=== PATIENT | female | born 1950 | race Caucasian/White ===

== ENCOUNTER 2016-10-31 13:26 | Emergency (ER) | payer MEDICARE, BC ==
[~2016-10-31] VITALS: Ht 165.1 cm; Wt 72.7 kg
[~2016-10-31 13:26] MED LIST: ALBU18HF IH; ALPR0.25 PO; AZIT250T6 PO; CITA20TA9 PO; ESTR0.62 PO; ESTR1TAB3 PO; FLUT1DIS IH; HYDR-971 PO; MELO15TA6 PO; PRED50TA PO
[2016-10-31 13:38] VITALS: BP 130/103
--- NOTE | 2016-10-31 14:05 | RAD ---
Bilateral ankles, 10/31/2016: History: Fall, pain No acute fracture or dislocation is identified cortical irregularity along the dorsal aspect of the anterior portion of the talus is probably due to old trauma. IMPRESSION: No acute bony abnormality is detected. Left foot, 3 views, 10/31/2016: No fracture or dislocation is identified.
--- NOTE | 2016-11-01 13:40 | ED.ADGEN ---
Past History Past Medical History: High Cholesterol, Hypertension, [place] Past Surgical History: Other Alcohol Use: None Drug Use: None Adult General Chief Complaint Chief Complaint Lower extremity injuries HPI HPI Patient is a 1-year-old female presents with bilateral ankle and left foot pain after tripping while walking down steps outdoors. Patient has abrasions contusions to both ankles, right greater than left and left foot pain. Patient has been able to weight bear with some pain. Denies hitting her head neck pain. Patient is not on anticoagulation therapy. No other symptoms or complaints. Review of Systems Review of Systems Review symptoms as per history of present illness. All other review symptoms are negative. Allergies Allergies Allergies Coded Allergies Type Severity Reaction Last Updated Verified Sulfa (Sulfonamide Antibiotics) Allergy Severe Hives 04/03/14 Yes Physical Exam Physical Exam Constitutional: Well developed, well nourished, no acute distress, non-toxic appearance. HENT: Normocephalic, atraumatic, bilateral external ears normal, oropharynx moist, no oral exudates, nose normal. Eyes: PERRLA, EOMI, conjunctiva normal, no discharge. Neck: Normal range of motion, no tenderness] Cardiovascular:Heart rate regular rhythm, no murmur. Lungs & Thorax: Bilateral breath sounds clear to auscultation . Extremities: Right ankle, tenderness swelling medial malleolus, no deformity or abrasions. Left ankle, no deformities, left midfoot contusion without deformity. Tenderness present. Neurologic: Alert and oriented X 3, normal motor function, normal sensory function, no focal deficits noted. Psychologic: Affect normal, judgement normal, mood normal. Current Patient Data Vital Signs Vital Signs Date Time Temp Pulse Resp B/P (MAP) Pulse Ox O2 Delivery O2 Flow Rate FiO2 10/31/16 13:38 98.1 82 20 95 Room Air EKG EKG [] Radiology/Procedures Radiology/Procedures Bilateral ankle, left foot: No fractures [] Course & Med Decision Making Course & Med Decision Making Pertinent Labs and Imaging studies reviewed. (See chart for details) [No evidence of fractures. Patient placed in a ankle sprain and ortho shoe. Patient is directed to use walker follow-up with PCP] Final Impression Final Impression [#1 bilateral ankle sprain # 2 left foot pain Problems: Dragon Disclaimer Dragon Disclaimer This electronic medical record was generated, in whole or in part, using a voice recognition dictation system. EVARISTO STROUD DO November 01, 2016 13:40
== END 2016-10-31 14:35 | disposition home or self-care (01) ==
LOC: ER 13:26
DX: S93.402A Sprain of unspecified ligament of left ankle, initial encounter (principal); S93.401A Sprain of unspecified ligament of right ankle, initial encounter; M79.672 Pain in left foot; E78.00 Pure hypercholesterolemia, unspecified; I10 Essential (primary) hypertension; I25.2 Old myocardial infarction; Z88.2 Allergy status to sulfonamides; W01.0XXA Fall on same level from slipping, tripping and stumbling without subsequent striking against object, initial encounter; Y93.01 Activity, walking, marching and hiking; Y99.8 Other external cause status; Y92.89 Other specified places as the place of occurrence of the external cause
CPT/HCPCS: 29515; 73610; 73630; 99284-25

== ENCOUNTER → 2016-12-11 | Outpatient (CLI) | payer MEDICARE, BC ==
--- NOTE | 2016-12-11 13:31 | RAD ---
DATE: December 11, 2016 EXAM: MAMMO CRISTOBAL SCREENING BILATERAL HISTORY: Screening study. COMPARISON: March 23, 2014. This study was interpreted with the benefit of Computerized Aided Detection (CAD). 2-D digital mammographic views of both breasts were performed in the CC and MLO projections. 3-D digital tomosynthesis of both breasts were performed in the CC and MLO projections and reviewed on a computer workstation. FINDINGS: The breast parenchyma heterogeneiously dense, which could reduce sensitivity of mammography. Again seen is a nodule within the medial aspect of the right breast at the 3:00 position which is stable. Again seen is a nodule within the inferior aspect of the left breast which is stable. There are no new dominant suspicious masses, suspicious microcalcifications or evidence of architectural distortion. IMPRESSION: No mammographic indicators for malignancy. BI-RADS CATEGORY: 2 BENIGN FINDING RECOMMENDED FOLLOW-UP: 12M 12 MONTH FOLLOW-UP PQRS compliance statement: Patient information was entered into a reminder system with a target due date December 12, 2017 for the next mammogram. Mammography is a sensitive method for finding small breast cancers, but it does not detect them all and is not a substitute for careful clinical examination. A negative mammogram does not negate a clinically suspicious finding and should not result in delay in biopsying a clinically suspicious abnormality. "Our facility is accredited by the [employer] Mammography Program." The patient's breast density may affect the ability of mammography to detect breast cancer. There are 4 categories of breast density, A, B, C and D. Breast density A means that most of the breast tissue is replaced with adipose tissue and therefore is not dense. Breast density B means that the breast tissue is mildly dense and scattered. Breast density C means that the breast tissue is heterogeneously dense. Breast density D means that the breast tissue is very dense. Breast densities especially C and D may decrease the sensitivity of mammography to detect breast cancer. Therefore, the patient may benefit from 3-D breast mammography (3D breast tomography) as a part of their screening mammogram. Insurance may or may not pay for this additional imaging. The patient's breast density based on today's mammogram is category C.
== END | disposition home or self-care (01) ==
LOC: MAMMO 10:43
PROVIDERS: ATTEND Specialist
DX: Z12.31 Encounter for screening mammogram for malignant neoplasm of breast (principal)
CPT/HCPCS: 77063; G0202; 77067

== ENCOUNTER → 2018-01-14 | Outpatient (CLI) | payer MEDICARE, BC ==
--- NOTE | 2018-01-14 16:39 | RAD ---
DATE: 01/14/2018 EXAM: MAMMO CRISTOBAL SCREENING BILATERAL HISTORY: Routine screening COMPARISON: 12/11/2016 This study was interpreted with the benefit of Computerized Aided Detection (CAD). The breast parenchyma is heterogeneously dense, which could reduce sensitivity of mammography. Breast parenchyma level C. FINDINGS: 2-D and 3-D tomosynthesis imaging was performed in CC and MLO projections. The fibroglandular tissues are heterogeneous and somewhat nodular in character. A smooth rounded nodule in the medial aspect of the right breast has decreased in size since the previous study indicating a benign etiology. A nodule in the inferior aspect of left breast is stable. No spiculated mass or architectural distortion is seen. Benign type calcification is present. No suspicious microcalcifications have developed. IMPRESSION: There is no mammographic evidence of malignancy in either breast. BI-RADS CATEGORY: 2 BENIGN FINDING(S) RECOMMENDED FOLLOW-UP: 12M 12 MONTH FOLLOW-UP PQRS compliance statement: Patient information was entered into a reminder system with a target due date for the next mammogram. Mammography is a sensitive method for finding small breast cancers, but it does not detect them all and is not a substitute for careful clinical examination. A negative mammogram does not negate a clinically suspicious finding and should not result in delay in biopsying a clinically suspicious abnormality. "Our facility is accredited by the [employer] Mammography Program."
== END | disposition home or self-care (01) ==
LOC: MAMMO 14:09
PROVIDERS: ATTEND Specialist
DX: Z12.31 Encounter for screening mammogram for malignant neoplasm of breast (principal); I10 Essential (primary) hypertension; E78.00 Pure hypercholesterolemia, unspecified; J44.9 Chronic obstructive pulmonary disease, unspecified; Z87.891 Personal history of nicotine dependence
CPT/HCPCS: 77063; 77067

== ENCOUNTER → 2019-01-20 | Outpatient (CLI) | payer MEDICARE, BC ==
[~2019-01-20] MED LIST changes: -ALBU18HF IH; +ALBU2.5V8 IH; +HYDR-3165 PO; -HYDR-971 PO
--- NOTE | 2019-01-20 12:34 | RAD ---
EXAM: Dual energy x-ray absorptiometry (DEXA). HISTORY: Postmenopausal presents for osteoporosis screening. COMPARISON: 06/03/2007. TECHNIQUE: Dual energy x-ray absorptiometry of the lumbar spine and right hip was performed. Calculation of bone mineral density based on standard deviations above or below the expected young adult normal value (T-score) was completed. FINDINGS: The average bone mineral density in the 1st through 4th lumbar vertebrae is 0.982 g/cmxcm, corresponding with a T-score of -1.6. There is been a 4.6% increase in density of the lumbar spine compared to the baseline study. The average total bone mineral density in the right hip is 0.700 g/cmxcm, corresponding with a T-score of -2.1. There has been a 0.1% decrease in density of the right hip compared to the baseline exam. IMPRESSION: Osteopenia measured at the lumbar spine and right hip. Note: Definitions established by the World Health Organization: 1. Normal: T-score is -1.0 or above. 2. Osteopenia: T-score is between -1.0 and -2.5 . 3. Osteoporosis: T-score is -2.5 or below. Electronically signed by: María Briggs MD (01/20/2019 12:31 PM) [facility]
--- NOTE | 2019-01-21 11:15 | RAD ---
DATE: 01/20/2019 EXAM: MAMMO CRISTOBAL SCREENING BILATERAL HISTORY: Routine screening COMPARISON: 12/11/2016 and 01/14/2018 mammographic exams This study was interpreted with the benefit of Computerized Aided Detection (CAD). Breast Density: HETERO The breast parenchyma is heterogenously dense, which could reduce sensitivity of mammography. Breast parenchyma level C. FINDINGS: Small masses are stable. No suspicious calcifications. No suspicious new dominant mass or distortion. IMPRESSION: Stable. BI-RADS CATEGORY: 2 BENIGN FINDING(S) RECOMMENDED FOLLOW-UP: 12M 12 MONTH FOLLOW-UP PQRS compliance statement: Patient information was entered into a reminder system with a target due date in one year for the next mammogram. Mammography is a sensitive method for finding small breast cancers, but it does not detect them all and is not a substitute for careful clinical examination. A negative mammogram does not negate a clinically suspicious finding and should not result in delay in biopsying a clinically suspicious abnormality. "Our facility is accredited by the [employer] Mammography Program."
== END | disposition home or self-care (01) ==
LOC: DXRAD 09:26
PROVIDERS: ATTEND Specialist
DX: Z12.31 Encounter for screening mammogram for malignant neoplasm of breast (principal); Z13.820 Encounter for screening for osteoporosis; M85.88 Other specified disorders of bone density and structure, other site; N63.20 Unspecified lump in the left breast, unspecified quadrant; N63.10 Unspecified lump in the right breast, unspecified quadrant; N95.9 Unspecified menopausal and perimenopausal disorder
CPT/HCPCS: 77063; 77067; 77080

== ENCOUNTER 2019-12-20 09:20 | Emergency (ER) | payer MEDICARE, BC ==
[~2019-12-20] VITALS: Ht 165.1 cm; Wt 72.9 kg
[2019-12-20] MEDS ORDERED: IV NORMAL SALINE 1,000ML 1,000 ML IV SCH (09:50)
--- NOTE | 2019-12-20 09:55 | PHYS DOC ---
Past History Past Medical History: Constipation, High Cholesterol, Hypertension, [place], Migraines Past Surgical History: No Surgical History Alcohol Use: None Drug Use: None General Adult EDM: Chief Complaint: HEADACHE HPI: HPI: Patient is a 69-year-old female who presents to the emergency department for evaluation. She states that for the past week she has been constipated, and finally took some laxatives and an enema and had a good bowel movement yesterday, but developed a gradual onset of a severe global headache. She states she has not had similar headaches to this in the past. She states the headache did not begin abruptly, and was not "thunderclap" in onset. She has not had any vision changes, numbness, weakness, speech difficulty or confusion. She denies any head injury or trauma. She states she does not typically get headaches like this, although her history does list a past history of migraines, she states that her migraine headaches, which occur occasionally do not feel similar to this current headache. There are no alleviating or exacerbating factors to the patient's symptoms. She did take some Tylenol at home prior to arrival this morning without significant improvement. Review of Systems: Review of Systems: Constitutional: Denies fever or chills Eyes: Denies change in visual acuity HENT: Denies nasal congestion or sore throat Respiratory: Denies cough or shortness of breath Cardiovascular: Denies chest pain or edema GI: Denies abdominal pain, nausea, vomiting, bloody stools or diarrhea : Denies dysuria Musculoskeletal: Denies back pain or joint pain Integument: Denies rash Neurologic: Denies focal weakness or sensory changes Endocrine: Denies polyuria or polydipsia Lymphatic: Denies swollen glands Psychiatric: Denies depression or anxiety Heart Score: Risk Factors: Risk Factors: DM, Current or recent (<one month) smoker, HTN, HLP, family history of CAD, obesity. Risk Scores: Score 0 - 3: 2.5% MACE over next 6 weeks - Discharge Home Score 4 - 6: 20.3% MACE over next 6 weeks - Admit for Clinical Observation Score 7 - 10: 72.7% MACE over next 6 weeks - Early Invasive Strategies Allergies: Allergies: Allergies Coded Allergies Type Severity Reaction Last Updated Verified Sulfa (Sulfonamide Antibiotics) Allergy Severe Hives 04/03/14 Yes Physical Exam: PE: PHYSICAL EXAM: CONSTITUTIONAL: Well developed, well nourished HEAD: normocephalic, atraumatic. The temporal arteries are palpable bilaterally and nontender. EENT: PERRL, EOMI. Conjunctivae normal color, sclerae non-icteric; moist mucous membranes. NECK: Supple, non-tender; no meningismus. LUNGS: Lungs CTA, breathing even and unlabored. Normal air movement. HEART: Regular rate and rhythm, no murmur CHEST: No deformity; non-tender ABDOMEN: The abdomen is soft, and non-tender, no masses or bruits. EXTREM: Normal ROM; no deformity, no calf tenderness. Normal pulses palpable in all extremities. There is no pedal edema. SKIN: No rash; no diaphoresis NEURO: Alert; normal speech and cognition; CN's grossly intact; strength grossly intact without focal deficit. Isjlhy-zkav-yqsscv and heel alba testing is normal. Visual chatman are intact by confrontation. Sensation is grossly intact. NIH stroke scale score is 0. BACK: No CVA TTP. PSYCHIATRIC: Patient appears moderately anxious. Current Patient Data: Labs: Laboratory Tests Test 12/20/19 10:00 White Blood Count 7.2 x10^3/uL Red Blood Count 4.34 x10^6/uL Hemoglobin 13.7 g/dL Hematocrit 39.8 % Mean Corpuscular Volume 92 fL Mean Corpuscular Hemoglobin 32 pg Mean Corpuscular Hemoglobin Concent 35 g/dL Red Cell Distribution Width 12.8 % Platelet Count 260 x10^3/uL Neutrophils (%) (Auto) 63 % Lymphocytes (%) (Auto) 27 % Monocytes (%) (Auto) 8 % Eosinophils (%) (Auto) 2 % Basophils (%) (Auto) 1 % Neutrophils # (Auto) 4.5 x10^3uL Lymphocytes # (Auto) 1.9 x10^3/uL Monocytes # (Auto) 0.6 x10^3/uL Eosinophils # (Auto) 0.1 x10^3/uL Basophils # (Auto) 0.0 x10^3/uL Sodium Level 135 mmol/L Potassium Level 3.5 mmol/L Chloride Level 101 mmol/L Carbon Dioxide Level 24 mmol/L Anion Gap 10 Blood Urea Nitrogen 15 mg/dL Creatinine 0.9 mg/dL Estimated GFR (Cockcroft-Gault) 61.7 BUN/Creatinine Ratio 17 Glucose Level 118 mg/dL Calcium Level 8.4 mg/dL Total Bilirubin 0.4 mg/dL Aspartate Amino Transf (AST/SGOT) 17 U/L Alanine Aminotransferase (ALT/SGPT) 28 U/L Alkaline Phosphatase 69 U/L C-Reactive Protein < 0.5 mg/L Total Protein 6.6 g/dL Albumin 3.4 g/dL Albumin/Globulin Ratio 1.1 Current Medications Medications (Trade) Dose Ordered Sig/Aramis Route PRN Reason Start Time Stop Time Status Last Admin Dose Admin Morphine Sulfate (Morphine 4mg Syringe) 4 mg PRN Q15MIN PRN IV/SQ PAIN GREATER THAN 3/10 12/20/19 10:00 12/21/19 09:59 12/20/19 10:29 Sodium Chloride 1,000 ml @ 1,000 mls/hr Q1H IV 12/20/19 09:50 12/20/19 10:49 12/20/19 10:29 Lorazepam (Ativan) 0.5 mg 1X ONCE PO 12/20/19 10:15 12/20/19 10:16 DC 12/20/19 10:30 Vital Signs: Vital Signs Date Time Temp Pulse Resp B/P (MAP) Pulse Ox O2 Delivery O2 Flow Rate FiO2 12/20/19 09:20 97.9 82 18 144/95 (111) 98 Room Air EKG: EKG: Normal sinus rhythm at a rate of 64 bpm, with occasional PVCs, left axis deviation, left anterior fascicular block. There are no acute ischemic ST/T changes. [] Radiology/Procedures: Radiology/Procedures: PROCEDURE: CT HEAD WO CONTRAST CT Head W/O Contrast: History: Reason: SAINZ / Spl. Instructions: / History: Comparison: none Axial images were obtained without contrast. The yoo and white matter appears normal and symmetrical for the patients age. There is no mass effect, extraaxial fluid collections or hydrocephalus. There is no gross bleed. There is no focal loss of yoo-white matter distinction to suggest acute ischemia, i.e. stroke. Impression: No acute findings.[] Course & Med Decision Making: Course & Med Decision Making Pertinent Labs and Imaging studies reviewed. (See chart for details) [] 11:35 AM: The patient is feeling significantly better. Her headache has completely resolved. Her mental status is at baseline, verified by her who is at bedside. I discussed test results in detail, the need for close outpatient follow-up and return precautions in detail. Jose F Disclaimer: Dragon Disclaimer: This electronic medical record was generated, in whole or in part, using a voice recognition dictation system. Departure Departure: Impression: Primary Impression: Headache Disposition: 01 HOME/RESIDENCE PRIOR TO ADM Condition: STABLE Referrals: CHEIKH CAST MD (PCP) Patient Instructions: General Headache Without Cause Justification of Admission: Justification of Admission: Justification of Admission Dx: N/A SAMANTA GALEANO MD Dec 20, 2019 09:55
[2019-12-20] MEDS ORDERED: MORPHINE SULFATE 4 MG/ML DISP.SYRIN. IV/SQ PRN (10:00)
[2019-12-20] MEDS ORDERED: LORazepam 1 MG TABLET PO ONE (10:15)
[2019-12-20 10:21] LABS: BASO % 1 % (0-3); EOS # 0.1 x10^3/uL (0.0-0.7); EOS % 2 % (0-3); HEMATOCRIT 39.8 % (36.0-47.0); HEMOGLOBIN 13.7 g/dL (12.0-15.5); LYMPH # 1.9 x10^3/uL (1.0-4.8); LYMPH % 27 % (24-48); MEAN CORPUSCULAR HEMOGLOBIN 32 pg (25-35); MEAN CORPUSCULAR HGB CONC 35 g/dL (31-37); MEAN CORPUSCULAR VOLUME 92 fL (79-100); MONO # 0.6 x10^3/uL (0.0-1.1); MONO % 8 % (0-9); NEUT # 4.5 x10^3uL (1.8-7.7); NEUT % 63 % (31-73); PLATELET COUNT 260 x10^3/uL (140-400); RED BLOOD COUNT 4.34 x10^6/uL (3.50-5.40); RED CELL DISTRIBUTION WIDTH 12.8 % (11.5-14.5); WHITE BLOOD COUNT 7.2 x10^3/uL (4.0-11.0)
--- NOTE | 2019-12-20 10:24 | RAD ---
CT Head W/O Contrast: History: Reason: SAINZ / Spl. Instructions: / History: Comparison: none Axial images were obtained without contrast. The yoo and white matter appears normal and symmetrical for the patients age. There is no mass effect, extraaxial fluid collections or hydrocephalus. There is no gross bleed. There is no focal loss of yoo-white matter distinction to suggest acute ischemia, i.e. stroke. Impression: No acute findings. RS Compliance Statement: One or more of the following individualized dose reduction techniques were utilized for this examination: 1. Automated exposure control 2. Adjustment of the mA and/or kV according to patient size 3. Use of iterative reconstruction technique Electronically signed by: Jc Montiel III, MD (12/20/2019 10:21 AM) [id number]
[2019-12-20 10:27] LABS: ANION GAP 10 (6-14); BLOOD UREA NITROGEN 15 mg/dL (7-20); BUN/CREATININE RATIO 17 (6-20); CALCIUM 8.4 mg/dL (8.5-10.1); CARBON DIOXIDE 24 mmol/L (21-32); CHLORIDE 101 mmol/L (98-107); CREATININE 0.9 mg/dL (0.6-1.0); GFR 61.7; GLUCOSE 118 mg/dL (70-99); POTASSIUM 3.5 mmol/L (3.5-5.1); SODIUM 135 mmol/L (136-145)
--- NOTE | 2019-12-20 10:29 | EKG ---
[address] [address] Test Date: 2019-12-20 Test Time: 10:02:43 Pat Name: JAGDISH CONSTANTINO Department: Room: Gender: F Plumber Supervisor: : [id number] Requested By: SAMANTA GALEANO Order Number: [id number] Reading MD: Measurements Intervals [place] Rate: 64 P: OR: QRS: -51 QRSD: 98 T: 45 QT: 392 QTc: 408 Interpretive Statements IRREGULAR RHYTHM, NO P-WAVE FOUND VENTRICULAR PREMATURE COMPLEX(ES) ABNORMAL LEFT AXIS DEVIATION LEFT ANTERIOR FASCICULAR BLOCK QRS(T) CONTOUR ABNORMALITY CONSISTENT WITH ANTEROSEPTAL INFARCT AGE UNDETERMINED ABNORMAL ECG RI6.02 No previous ECG available for comparison
[2019-12-20 10:32] LABS: ALBUMIN 3.4 g/dL (3.4-5.0); ALBUMIN/GLOBULIN RATIO 1.1 (1.0-1.7); ALK PHOS 69 U/L (46-116); ALT (SGPT) 28 U/L (14-59); AST (SGOT) 17 U/L (15-37); TOTAL BILIRUBIN 0.4 mg/dL (0.2-1.0); TOTAL PROTEIN 6.6 g/dL (6.4-8.2)
[2019-12-20 10:34] LABS: C REACTIVE PROTEIN < 0.5 mg/L (0-3.3)
[2019-12-20 11:10] VITALS: BP 129/72
== END 2019-12-20 11:38 | disposition home or self-care (01) ==
LOC: ER 09:20
DX: G43.909 Migraine, unspecified, not intractable, without status migrainosus (principal); K59.00 Constipation, unspecified; E78.00 Pure hypercholesterolemia, unspecified; I25.2 Old myocardial infarction; Z88.2 Allergy status to sulfonamides
CPT/HCPCS: 36415; 70450; 80053; 85025; 86140; 93005; 96374; 99285; J2270; J7030

== ENCOUNTER → 2020-02-10 | Outpatient (CLI) | payer MEDICARE, BC ==
--- NOTE | 2020-02-11 18:02 | RAD ---
DATE: 02/10/2020 2:31 PM EXAM: MAMMO CRISTOBAL SCREENING BILATERAL HISTORY: Screening COMPARISON: 01/20/2019, 01/14/2018 Bilateral CC and MLO views of the breasts were performed. Bilateral breast tomosynthesis was performed in CC and MLO projections. This study was interpreted with the benefit of Computerized Aided Detection (CAD). FINDINGS: Breast Density: HETERO The breast parenchyma Is heterogeneously dense, which could reduce sensitivity of mammography. Breast parenchyma level C No suspicious masses, microcalcifications or architectural distortion is present to suggest malignancy in either breast. The visualized axillae are unremarkable. IMPRESSION: No mammographic evidence of malignancy. BI-RADS CATEGORY: 1 NEGATIVE RECOMMENDED FOLLOW-UP: 12M 12 MONTH FOLLOW-UP Annual screening mammography is recommended, unless clinically indicated sooner based on symptoms or change in physical exam. PQRS compliance statement: Patient information was entered into a reminder system with a target due date for the next mammogram. Mammography is a sensitive method for finding small breast cancers, but it does not detect them all and is not a substitute for careful clinical examination. A negative mammogram does not negate a clinically suspicious finding and should not result in delay in biopsying a clinically suspicious abnormality. "Our facility is accredited by the [employer] Mammography Program."
== END | disposition home or self-care (01) ==
LOC: MAMMO 14:16
PROVIDERS: ATTEND Specialist
DX: Z12.31 Encounter for screening mammogram for malignant neoplasm of breast (principal)
CPT/HCPCS: 77063; 77067

== ENCOUNTER → 2020-03-30 | Outpatient (CLI) | payer MEDICARE, BC ==
--- NOTE | 2020-03-30 10:26 | RAD ---
CT LOW DOSE LUNG SCREENING Indication: Lung cancer screening Technique: Noncontrast CT imaging was performed of the chest as per low dose screening protocol, multiplanar reconstruction images submitted. One or more of the following individualized dose reduction techniques were utilized for this examination: 1. Automated exposure control 2. Adjustment of the mA and/or kV according to patient size 3. Use of iterative reconstruction technique. Comparison: None Findings: There is a tiny 2 mm right lower lobe nodule image 130 series 2. There is approximate 9 mm transverse by 3 mm AP by 7 mm cc noncalcified nodule right lower lobe abutting the major fissure best seen image 135 series 2. There is a 5 mm inferior medial right middle lobe nodule 224 series 2. There are a couple of small 2 mm right apical nodules images 31 and 48 series 2. There is 2 mm left upper lobe nodule image 62. There is 3 mm left upper lobe nodule image 85. There is 2 mm posterior left upper lobe nodule image 83 series 2. There is 4 mm subsolid left upper lobe nodule image 175. There is 3 to 4 mm posterior left upper lobe nodule abutting the fissure image 99 series 2. There is a small 3 mm nodule along the left hemidiaphragm best seen sagittal image 33 series 4. There is likely subsolid left lower lobe nodule image 164 about 5 mm. There is biapical fibrotic change greater on the right. There is moderate centrilobular emphysema with upper zone predominance. There is degree of lower lobe bronchial wall thickening greater on the right. There is no pleural fluid or pneumothorax. There is no lobar infiltrate. There is [id number] size hiatal hernia, nonspecific wall thickening of involved segment. There is coronary calcification. Thoracic aortic caliber is within normal limits. No significantly enlarged nodes are identified of the chest. There is hepatic steatosis. There is cholelithiasis. There are some pancreatic calcifications. There is slightly exophytic lesion arising from the mid to superior right kidney laterally about 30 mm in size with density measurements not of a simple cyst at 49 Hounsfield units. There is also hyperdense lesion of the mid to superior, posterior left kidney about 12 mm, density measurements of about 80 Hounsfield units. The renal lesions are larger than 2013 CT abdomen exam. There is small bilateral renal calculi. IMPRESSION: 1. There are several pulmonary nodules as stated, largest of the right lower lobe abutting the major fissure. Lung RADS category 4, 3 month low-dose CT follow-up recommended. 2. There is moderate centrilobular emphysema. There is degree of bronchial wall thickening greatest of the right lower lobe. 3. There is coronary calcification. 4. There is hepatic steatosis. 5. There are bilateral renal lesions larger than 2013 exam, more hyperdense than simple cysts. These may be hemorrhagic or proteinaceous cysts although ultrasound evaluation or pre and postcontrast CT evaluation is recommended to exclude solid lesion. There are small bilateral renal calculi. 6. There is cholelithiasis. 7. There is hiatal hernia, nonspecific wall thickening. 8.. Calcifications may be associated with chronic or recurrent pancreatitis. Electronically signed by: Oscar Serrato MD (03/30/2020 10:23 AM) [facility]
--- NOTE | 2020-03-30 12:46 | RAD ---
EXAM: Dual energy x-ray absorptiometry (DEXA). HISTORY: Screening, osteopenia. COMPARISON: 01/20/2019. TECHNIQUE: Dual energy x-ray absorptiometry of the lumbar spine and right hip was performed. Calculation of bone mineral density based on standard deviations above or below the expected young adult normal value (T-score) was completed. FINDINGS: LUMBAR SPINE: The AVG BMD OF the L1-L4 region = 0.954 gm/cm2, T-score = -1.9, Z-score = -0.4. Findings are consistent with osteopenia. Femoral Necks: The BMD of the right femoral neck = 0.742 gm/cm2, T-score = -2.1, Z-score = -0.5. The Findings are consistent with osteopenia. Comparison to the previous DEXA study: Lumbar Spine: Compared to the previous BMD value of 0.982 today's value is not significantly changed. Right femoral neck: Compared to the previous BMD value of 0.725 today's value is not significantly changed. IMPRESSION: Osteopenia in the lumbar spine and right femoral neck Electronically signed by: Ralf Scruggs MD (03/30/2020 12:44 PM) [id number]
== END ==
LOC: DXRAD 09:28
PROVIDERS: ATTEND Specialist
DX: Z12.2 Encounter for screening for malignant neoplasm of respiratory organs (principal); M81.0 Age-related osteoporosis without current pathological fracture; J43.2 Centrilobular emphysema; J92.9 Pleural plaque without asbestos; I25.10 Atherosclerotic heart disease of native coronary artery without angina pectoris; K76.0 Fatty (change of) liver, not elsewhere classified; K80.20 Calculus of gallbladder without cholecystitis without obstruction; N20.0 Calculus of kidney; N28.1 Cyst of kidney, acquired; R91.8 Other nonspecific abnormal finding of lung field; K44.9 Diaphragmatic hernia without obstruction or gangrene; J84.10 Pulmonary fibrosis, unspecified; M85.88 Other specified disorders of bone density and structure, other site; Z87.891 Personal history of nicotine dependence
CPT/HCPCS: 77080; G0297

== ENCOUNTER → 2020-04-29 | Outpatient (CLI) | payer MEDICARE, BC ==
--- NOTE | 2020-04-29 17:16 | RAD ---
Renal ultrasound 04/29/2020 CLINICAL HISTORY: Lesions seen within the kidneys on recent lung screening CT study. TECHNIQUE: A real-time ultrasound examination of both kidneys and the urinary bladder was performed. Multiple images were obtained. FINDINGS: Comparison is made to the patient's CT scan of the chest which included the upper abdomen dated 03/30/2020. Both kidneys are within normal limits in size. The right kidney measures 10.9 cm in length. The left kidney measures 10.5 cm in length. A 2.7 cyst is seen involving the superior/midpole of the right kidney. This corresponds to the lesion seen on the patients CT scan. The 1.2 cm hyperdense lesion seen within the midpole of the left kidney is not visualized on ultrasound likely due to its posterior location. No solid mass is seen involving the left kidney. The CT appearance of this lesion is felt to be most consistent with a hyperdense cyst. The small renal calculi seen on the patient's CT scan are not visualized by ultrasound. There is no evidence of hydronephrosis. A 4 cm nodular area is seen within the splenic hilum which likely represents a splenule. Small gallstones are seen within the gallbladder. The Common bile duct measures 9 mm in diameter which is prominent for the patient's age. The urinary bladder is slightly contracted. No abnormality is seen. IMPRESSION: 2.7 cm simple cyst is seen involving the right kidney which corresponds to the abnormality seen on the patients CT scan. The 1.2 cm hyperdense lesion seen within the left kidney on the patient's recent CT scan is not visualized by ultrasound. Its CT appearance is felt to most likely represent a hyperdense cyst, however. Electronically signed by: Piter Santos MD (04/29/2020 5:13 PM) [id number]
== END ==
LOC: US 10:44
PROVIDERS: ATTEND Specialist
DX: N28.1 Cyst of kidney, acquired (principal)
CPT/HCPCS: 76770

== ENCOUNTER → 2020-06-24 | Outpatient (CLI) | payer MEDICARE, BC ==
--- NOTE | 2020-06-24 11:24 | RAD ---
EXAM: CT chest low dose lung cancer screening without contrast. HISTORY: Cigarette smoking history. TECHNIQUE: Computed tomographic images of the chest were obtained without contrast. Multiplanar refor matting was performed. *One or more of the following individualized dose reduction techniques were utilized for this examina tion: 1. Automated exposure control. 2. Adjustment of the mA and/or kV according to patient size. 3. Use of iterative reconstruction technique. COMPARISON: 03/30/2020. FINDINGS: There is a stable 8 x 3 mm nodule within the right lower lobe along the major fissure, the appearance of which favors a fissural lymph node (series 2, image 144). There is a stable 2 mm nodule within the anterior right middle lobe (series 2, image 175). There is a stable 2 mm groundglass nodu le within the anterior right middle lobe (series 2, image 147). There is a stable 2 mm nodule within the posterior right upper lobe (series 2, image 68). There is stable 2 mm nodule within the left lung apex (series 2, image 22). There is a stable 2 mm nodule within the lateral left upper lobe (series 2, image 54). There is a stable 3 mm nodule within the lateral left upper lobe (series 2, image 78). There is stable 4 mm nodule within the posterior left upper lobe along the pleural fissure likely rep resenting a fissural lymph node (series 2, image 96). There is emphysema. There is no pneumothorax or pleural effusion. There is biapical pleural parenchym al scarring. The heart is normal in size. There is calcified atherosclerotic plaque involving the cor onary arteries. No pathologically enlarged mediastinal or hilar lymph node is seen. There is a small hiatal hernia. There is a stable 1.2 cm right hepatic cyst. There is stable prominence of the pancrea tic tail likely due to adjacent splenic vessels. There are hypodense lesions within both kidneys emanuel uring 1.7 cm on the left and 2.3 cm on the right. There is degenerative change involving the spine. T here is no suspicious osseous lesion. IMPRESSION: 1. Multiple stable bilateral pulmonary nodules, the largest of which measures 8 mm within the right l hector along the major fissure and is likely a fissural lymph node. Lung RADS category 4: Follow-up in 3 months is recommended. 2. Pulmonary emphysema. 3. Hepatic cyst and suspected hepatic steatosis. 4. Renal cysts and bilateral renal hyperdense lesions likely due to hemorrhagic cyst. These are simil ar compared to the prior study. Follow-up renal sonography can be performed to confirm benignity. Electronically signed by: María Briggs MD (06/24/2020 11:21 AM) [id number]
== END ==
LOC: CT 10:29
PROVIDERS: ATTEND Specialist
DX: Z12.2 Encounter for screening for malignant neoplasm of respiratory organs (principal); R91.8 Other nonspecific abnormal finding of lung field; I25.10 Atherosclerotic heart disease of native coronary artery without angina pectoris; K44.9 Diaphragmatic hernia without obstruction or gangrene; N28.1 Cyst of kidney, acquired; J43.8 Other emphysema; K76.89 Other specified diseases of liver; Z87.891 Personal history of nicotine dependence
CPT/HCPCS: 71271

== ENCOUNTER → 2020-07-01 | Outpatient (CLI) | payer MEDICARE, BC ==
--- NOTE | 2020-07-01 23:36 | RAD ---
CLINICAL HISTORY: Bilateral renal cysts, follow-up COMPARISON: CT 03-30-20;Renal US 04-29-20 TECHNIQUE: Ultrasound examination of the bilateral kidneys and urinary bladder was performed. FINDINGS: The right kidney measures 11 cm in bipolar length. The renal cortex is normal in thickness. Renal ech ogenicity is normal. A 2.2 cm right upper pole simple appearing renal cyst is seen. There is no evide nce for hydronephrosis, shadowing renal calculus or other focal abnormality . The left kidney measures 10.7 cm in bipolar length. The renal cortex is normal in thickness. Renal ec hogenicity is normal. There is no evidence for hydronephrosis, shadowing renal calculus or focal abno rmality. No definite sonographic correlate for the high density left upper pole renal renal lesion se en on prior CT. Images of the partially filled urinary bladder are unremarkable. Echogenic appearance of the liver, likely fatty liver. IMPRESSION: 1. The high density lesion seen on prior CT within the left kidney is not definitively seen on this examination. Hemorrhagic/proteinaceous cyst or solid mass remain within the differential. As this was also not seen on prior renal ultrasound, consider MRI kidney protocol to confirm cystic nature or co ntinued follow-up on CT evaluation to establish stability. 2. Echogenic appearance of the liver, likely fatty liver. Electronically signed by: Ralf Scruggs MD (07/01/2020 11:33 PM) CJ
== END ==
LOC: US 12:25
PROVIDERS: ATTEND Specialist
DX: N28.1 Cyst of kidney, acquired (principal)
CPT/HCPCS: 76770

== ENCOUNTER → 2020-12-22 | Day surgery (SDC) | payer MEDICARE, BC ==
[~2020-12-22] MED LIST changes: +ACETAMINOPHEN 500 MG TABLET PO PRN; +ASPI-630 PO; +ATOR40TA59 PO; +BALANCED SALT IRRIG SOLN NO.2 500 ML IO ONE; +BENZONATATE 100 MG CAPSULE. PO PRN; +BRIMONIDINE 0.2% OPHTH SOLUTION 5ML BOTTLE. OS ONE; +CEFUROXIME OPHTH 4 MG/0.4 ML SYRINGE. OS ONE; +CHONDROIT-SOD-HYALURONATE KIT. OS ONE; +FLUT1BLS8 IH; +IBUPROFEN 200 MG TABLET PO PRN; +IPRATRPIUM/ALBUTEROL 0.5/2.5MG 3 ML NEBU. NEB PRN; +IV RINGERS SOLUTION,LACTATED 1,000 ML IV SCH; +LIDO/EPI IN BSS OPHTH 2.7 ML SYRINGE. OS ONE; +LIDOCAINE 2% JELLY 6ML IN APPLICATOR. ONE; +METO50TA6 PO; +MIDAZOLAM HCL PF 2 MG/2 ML VIAL. IV ONE; +MIDAZOLAM HCL PF 2 MG/2 ML VIAL. ONE; +ONDANSETRON PF 4 MG/2 ML VIAL. IV PRN; +PHENYLEPHRINE 10% OPHTH SOLUTION 5ML BOTTLE. OS PRN; +POVIDONE-IODINE 5% OPHTH SOLUTION 30ML BOTTLE. ONE; +POVIDONE-IODINE 5% OPHTH SOLUTION 30ML BOTTLE. OS ONE; +POVIDONE-IODINE 5% OPHTH SOLUTION 30ML BOTTLE. OS PRN; +PROPARACAINE 0.5% OPHTH SOLUTION 15ML BOTTLE. OS ONE; +PROPARACAINE 0.5% OPHTH SOLUTION 15ML BOTTLE. OS PRN; +prednisoLONE ACETATE 1% OPHTH SUSPENSION 5ML BOTTLE. OS ONE
[2020-12-22] MEDS: TROPICAMIDE 1% OPHTH SOLUTION 15ML BOTTLE. OS SCH ×3 (11:04→11:15)
[2020-12-22] MEDS: TOBRAMYCIN 0.3% OPHTH SOLUTION 5ML BOTTLE. OS SCH ×2 (11:05→11:10)
[2020-12-22] MEDS: KETOROLAC TROMETHAMINE 0.5% OPHTH SOLUTION BOTTLE. OS SCH ×2 (11:05→11:10)
[2020-12-22] MEDS: PHENYLEPHRINE 2.5% OPHTH SOLUTION 2ML BOTTLE. OS SCH ×3 (11:05→11:15)
--- NOTE | 2020-12-22 12:32 | PDOC4 ---
SURGEON: Guanako Diaz MD Date of Procedure: 12/22/20 PREOP Diagnosis Visually significant cataract: Left Eye OS POSTOP Diagnosis Same PROCEDURE: Phaco w/ posterior chamber IOL: Left Eye OS ANESTHESIA Deep forniceal periocular 2% Lidocaine jelly Eden/retro bulbar block with 2% Lidocaine with 0.5% Marcaine DESCRIPTION OF PROCEDURE The risks, benefits, and alternatives were discussed with the patient who elected to proceed. Informed consent was obtained in writing and placed in the chart After anesthetizing the eye topically, the patient was taken to the operating room, and the operative eye was prepped and draped in the usual sterile fashion for ocular surgery. A wire lid speculum was placed. A 1-mm clear corneal paracentesis incision was created with the side-port blade at a position three o'clock hours clockwise from the temporal cornea. Then, 1% non-preserved Lidocaine with epinephrine was injected into the anterior chamber followed by viscoelastic. Cotton-tipped applicators were used to stabilize the globe, and a 2.4 mm keratome was used to create a self-sealing incision in clear cornea at the temporal limbus. The Utrata forceps were used to create a continuous curvilinear capsulorrhexis. Balanced saline solution was injected via cannula beneath the capsulorrhexis edge to hydrodissect the lens nucleus and cortex from the lens capsule. The phacoemulsification handpiece and a chopping instrument were then used to remove the lens nucleus. The remaining epinuclear material and cortex were removed with the irrigation/aspiration handpiece. Visc oelastic was used to re-inflate the lens capsule, and the intraocular lens was injected directly into the capsular bag. The corneal wound edges were hydrated with balanced salt solution on a cannula and the irrigation/aspiration handpiece was used to extract the remaining viscoelastic. Cefuroxime 0.1mg/ml / Vigamox 0.5% was injected into the anterior chamber intracamerally. The wounds were inspected and found to be watertight at an appropriate intraocular pressure. Topical antibiotic drops were placed on the corneal surface. LRI: No If Yes, Number [] Patriot [] Length [] degrees Depth [] microns Incision Patriot: 180 Toric Lens Patriot [] Patch/shield with Maxitrol/Tobradex/Erythromycin ointment: Yes No Co-managed patients/postop examination stable for co-management with referring doctor. EBL EBL: None SPECIMANS COLLECTED Specimens Collected: None GUANAKO DIAZ MD Dec 22, 2020 12:32
[2020-12-22 12:41] VITALS: BP 124/42
== END | disposition home or self-care (01) ==
LOC: SURG 10:47
PROVIDERS: ATTEND Ophthalmology
DX: H25.12 Age-related nuclear cataract, left eye (principal); E78.00 Pure hypercholesterolemia, unspecified; J43.8 Other emphysema; M19.90 Unspecified osteoarthritis, unspecified site; F17.210 Nicotine dependence, cigarettes, uncomplicated; I25.10 Atherosclerotic heart disease of native coronary artery without angina pectoris; I25.2 Old myocardial infarction; E03.0 Congenital hypothyroidism with diffuse goiter; Z88.2 Allergy status to sulfonamides; Z87.442 Personal history of urinary calculi; Z79.899 Other long term (current) drug therapy; Z98.890 Other specified postprocedural states; Z79.82 Long term (current) use of aspirin
CPT/HCPCS: 66984; J2250; V2632

== ENCOUNTER → 2021-01-05 | Day surgery (SDC) | payer MEDICARE, BC ==
[~2021-01-05] MED LIST changes: +BRIMONIDINE 0.2% OPHTH SOLUTION 5ML BOTTLE. OD ONE; -BRIMONIDINE 0.2% OPHTH SOLUTION 5ML BOTTLE. OS ONE; +CEFUROXIME OPHTH 4 MG/0.4 ML SYRINGE. OD ONE; -CEFUROXIME OPHTH 4 MG/0.4 ML SYRINGE. OS ONE; +CHONDROIT-SOD-HYALURONATE KIT. OD ONE; -CHONDROIT-SOD-HYALURONATE KIT. OS ONE; +LIDO/EPI IN BSS OPHTH 2.7 ML SYRINGE. OD ONE; -LIDO/EPI IN BSS OPHTH 2.7 ML SYRINGE. OS ONE; -MIDAZOLAM HCL PF 2 MG/2 ML VIAL. ONE; +PHENYLEPHRINE 10% OPHTH SOLUTION 5ML BOTTLE. OD PRN; -PHENYLEPHRINE 10% OPHTH SOLUTION 5ML BOTTLE. OS PRN; +POVIDONE-IODINE 5% OPHTH SOLUTION 30ML BOTTLE. OD ONE; +POVIDONE-IODINE 5% OPHTH SOLUTION 30ML BOTTLE. OD PRN; -POVIDONE-IODINE 5% OPHTH SOLUTION 30ML BOTTLE. OS ONE; -POVIDONE-IODINE 5% OPHTH SOLUTION 30ML BOTTLE. OS PRN; +PROPARACAINE 0.5% OPHTH SOLUTION 15ML BOTTLE. OD ONE; +PROPARACAINE 0.5% OPHTH SOLUTION 15ML BOTTLE. OD PRN; -PROPARACAINE 0.5% OPHTH SOLUTION 15ML BOTTLE. OS ONE; -PROPARACAINE 0.5% OPHTH SOLUTION 15ML BOTTLE. OS PRN; +prednisoLONE ACETATE 1% OPHTH SUSPENSION 5ML BOTTLE. OD ONE; -prednisoLONE ACETATE 1% OPHTH SUSPENSION 5ML BOTTLE. OS ONE
[2021-01-05] MEDS: TOBRAMYCIN 0.3% OPHTH SOLUTION 5ML BOTTLE. OD SCH ×2 (09:32→09:35)
[2021-01-05] MEDS: TROPICAMIDE 1% OPHTH SOLUTION 15ML BOTTLE. OD SCH ×3 (09:32→09:40)
[2021-01-05] MEDS: KETOROLAC TROMETHAMINE 0.5% OPHTH SOLUTION BOTTLE. OD SCH ×2 (09:32→09:35)
[2021-01-05] MEDS: PHENYLEPHRINE 2.5% OPHTH SOLUTION 2ML BOTTLE. OD SCH ×3 (09:32→09:39)
--- NOTE | 2021-01-05 11:19 | PDOC4 ---
SURGEON: Guanako Diaz MD Date of Procedure: 01/05/21 PREOP Diagnosis Visually significant cataract: Right Eye OD PROCEDURE: Phaco w/ posterior chamber IOL: Right Eye OD ANESTHESIA Deep forniceal periocular 2% Lidocaine jelly Eden/retro bulbar block with 2% Lidocaine with 0.5% Marcaine DESCRIPTION OF PROCEDURE The risks, benefits, and alternatives were discussed with the patient who elected to proceed. Informed consent was obtained in writing and placed in the chart After anesthetizing the eye topically, the patient was taken to the operating room, and the operative eye was prepped and draped in the usual sterile fashion for ocular surgery. A wire lid speculum was placed. A 1-mm clear corneal paracentesis incision was created with the side-port blade at a position three o'clock hours clockwise from the temporal cornea. Then, 1% non-preserved Lidocaine with epinephrine was injected into the anterior chamber followed by viscoelastic. Cotton-tipped applicators were used to stabilize the globe, and a 2.4 mm keratome was used to create a self-sealing incision in clear cornea at the temporal limbus. The Utrata forceps were used to create a continuous curvilinear capsulorrhexis. Balanced saline solution was injected via cannula beneath the capsulorrhexis edge to hydrodissect the lens nucleus and cortex from the lens capsule. The phacoemulsification handpiece and a chopping instrument were then used to remove the lens nucleus. The remaining epinuclear material and cortex were removed with the irrigation/aspiration handpiece. Viscoelastic was used to re-inflate the lens capsule, and the intraocular lens was injected directly into the capsular bag. The corneal wound edges were hydrated with balanced salt solution on a cannula and the irrigation/aspiration handpiece was used to extract the remaining viscoelastic. Cefuroxime 0.1mg/ml / Vigamox 0.5% was injected into the anterior chamber intracamerally. The wounds were inspected and found to be watertight at an appropriate intraocular pressure. Topical antibiotic drops were placed on the corneal surface. LRI: No If Yes, Number [] Lantry [] Length [] degrees Depth [] microns Incision Lantry: 180 Toric Lens Lantry [] Patch/shield with Maxitrol/Tobradex/Erythromycin ointment: Yes No Co-managed patients/postop examination stable for co-management with referring doctor. EBL EBL: None SPECIMANS COLLECTED Specimens Collected: None GUANAKO DIAZ MD Jan 05, 2021 11:19
[2021-01-05 11:32] VITALS: BP 131/59
== END | disposition home or self-care (01) ==
LOC: SURG 08:59
PROVIDERS: ATTEND Ophthalmology
DX: H25.11 Age-related nuclear cataract, right eye (principal); I10 Essential (primary) hypertension; E78.00 Pure hypercholesterolemia, unspecified; M19.90 Unspecified osteoarthritis, unspecified site; E03.0 Congenital hypothyroidism with diffuse goiter; I25.10 Atherosclerotic heart disease of native coronary artery without angina pectoris; Z88.2 Allergy status to sulfonamides; Z79.899 Other long term (current) drug therapy; Z79.82 Long term (current) use of aspirin; J43.8 Other emphysema; Z88.8 Allergy status to other drugs, medicaments and biological substances
CPT/HCPCS: 66984; J2250; V2632

== ENCOUNTER → 2021-01-12 | Outpatient (CLI) | payer MEDICARE, BC ==
[2021-01-05 11:32] VITALS: BP 131/59
[~2021-01-12] MED LIST changes: -ACETAMINOPHEN 500 MG TABLET PO PRN; -BALANCED SALT IRRIG SOLN NO.2 500 ML IO ONE; -BENZONATATE 100 MG CAPSULE. PO PRN; -BRIMONIDINE 0.2% OPHTH SOLUTION 5ML BOTTLE. OD ONE; -CEFUROXIME OPHTH 4 MG/0.4 ML SYRINGE. OD ONE; -CHONDROIT-SOD-HYALURONATE KIT. OD ONE; -IBUPROFEN 200 MG TABLET PO PRN; -IPRATRPIUM/ALBUTEROL 0.5/2.5MG 3 ML NEBU. NEB PRN; -IV RINGERS SOLUTION,LACTATED 1,000 ML IV SCH; -LIDO/EPI IN BSS OPHTH 2.7 ML SYRINGE. OD ONE; -LIDOCAINE 2% JELLY 6ML IN APPLICATOR. ONE; -MIDAZOLAM HCL PF 2 MG/2 ML VIAL. IV ONE; -ONDANSETRON PF 4 MG/2 ML VIAL. IV PRN; -PHENYLEPHRINE 10% OPHTH SOLUTION 5ML BOTTLE. OD PRN; -POVIDONE-IODINE 5% OPHTH SOLUTION 30ML BOTTLE. OD ONE; -POVIDONE-IODINE 5% OPHTH SOLUTION 30ML BOTTLE. OD PRN; -POVIDONE-IODINE 5% OPHTH SOLUTION 30ML BOTTLE. ONE; -PROPARACAINE 0.5% OPHTH SOLUTION 15ML BOTTLE. OD ONE; -PROPARACAINE 0.5% OPHTH SOLUTION 15ML BOTTLE. OD PRN; -prednisoLONE ACETATE 1% OPHTH SUSPENSION 5ML BOTTLE. OD ONE
--- NOTE | 2021-01-12 10:47 | RAD ---
EXAM: CT CHEST WITHOUT CONTRAST (LDCT LUNG CANCER SCREENING). HISTORY: Risk factors for pulmonary malignancy. COPD, history of nicotine use. TECHNIQUE: CT of the chest was performed without intravenous contrast using a low-dose lung screening protocol. Findings analysis is based on ACR Lung-RADS v1.1. *One or more of the following individual ized dose reduction techniques were utilized for this examination: 1. Automated exposure control. 2. Adjustment of the mA and/or kV according to patient size. 3. Use of iterative reconstruction technique. COMPARISON: 06/24/2020. FINDINGS: The central airways are patent. Heart size grossly appears unremarkable. Mild coronary artery calcifi cations. Small hiatal hernia. No evidence for significant mediastinal lymphadenopathy. Mild bilateral lung emphysematous changes. 8 mm nodule in the right lower lobe of the lung along the major fissure, 2 mm nodule anterior right middle lobe, 2 millimeters groundglass nodule anterior right middle lobe, 3 mm nodule posterior right upper lobe, 2 mm nodule in the left lung apex and 3 mm nodule in the lef t upper lobe, 4 mm nodule in the posterior left upper lobe along the fissure similar to prior exam. M ild biapical pleural scarring identified. The visualized noncontrasted liver, spleen, adrenals grossl y appears unremarkable. Mild degenerative changes thoracic spine. IMPRESSION/RECOMMENDATION: 1. Multiple stable bilateral pulmonary nodules unchanged. Lung RADS category 4. Follow-up CT in 3 months is recommended Electronically signed by: Casper Lopez MD (01/12/2021 10:44 AM) [id number]
== END ==
LOC: CT 08:56
PROVIDERS: ATTEND Specialist
DX: Z12.2 Encounter for screening for malignant neoplasm of respiratory organs (principal); R91.8 Other nonspecific abnormal finding of lung field; I25.10 Atherosclerotic heart disease of native coronary artery without angina pectoris; K44.9 Diaphragmatic hernia without obstruction or gangrene; J43.9 Emphysema, unspecified; Z87.891 Personal history of nicotine dependence
CPT/HCPCS: 71271

== ENCOUNTER → 2021-04-11 | Outpatient (CLI) | payer MEDICARE, BC ==
[2021-01-05 11:32] VITALS: BP 131/59
--- NOTE | 2021-04-11 10:21 | RAD ---
EXAM: CT CHEST WITHOUT CONTRAST (LDCT LUNG CANCER SCREENING). HISTORY: Risk factors for pulmonary malignancy. Cigarette smoking. TECHNIQUE: CT of the chest was performed without intravenous contrast using a low-dose lung screening protocol. Findings analysis is based on ACR Lung-RADS v1.1. *One or more of the following individual ized dose reduction techniques were utilized for this examination: 1. Automated exposure control. 2. Adjustment of the mA and/or kV according to patient size. 3. Use of iterative reconstruction technique. COMPARISON: 01/12/2021 and 03/30/2020. FINDINGS: The heart is normal in size. The thoracic aorta is normal in caliber. There is calcified at herosclerotic plaque involving the coronary arteries. There is calcification of the mitral valve daniel deny. No pathologically enlarged lymph node is seen. There is mild emphysema. There is no pneumothorax or pleural effusion. There is no infiltrate. There is biapical pleural parenchymal scarring. There is a stable elongated 8 x 2 mm nodule along the right major fissure, likely a fissural lymph no de. There is also a stable 3 mm suspected fissural lymph node along the right minor fissure and 3 mm fissural lymph node along the superior left pleural fissure. There is a stable 3 mm groundglass nodul e within the lateral left upper lobe (series 5, image 93). There are few additional tiny stable nodul es and nodular opacities. There are few calcified granulomas. There is stable suspected scarring along the medial right middle lobe. There is a small hiatal hernia . There is partial visualization of a hyperdense lesion within the mid zone of the left kidney measur ing 1.1 cm. There is stable fullness of the tail the pancreas, difficult to characterize in the absen ce of contrast. The year stability favors benignity. There are pancreatic calcifications likely due t o chronic pancreatitis. There is no suspicious or acute osseous finding. IMPRESSION: 1. Multiple pulmonary nodules, the largest of which measures 8 mm along the right major fissure and i s likely a perifissural lymph node. The year of stability an location of the largest nodules favors b enignity. Lung RADS 2: Continue annual screening with low dose CT in 12 months. 2. Pulmonary emphysema. 3. Small hiatal hernia. 4. Hyperdense lesion within the left kidney, partially included on the [id number] and possibly due to a hemorrhagic cyst. The additional renal lesions demonstrated on prior studies are excluded from the [id number]. Renal sonography can be performed to confirm benignity. Electronically signed by: María Briggs MD (04/11/2021 10:18 AM) [id number]
--- NOTE | 2021-04-11 17:12 | RAD ---
Bilateral digital screening mammogram to include digital breast tomosynthesis (3-D mammography) 04/11 CLINICAL HISTORY: Screening study. Digital MLO and CC mammograms of both breasts were obtained. Additionally digital breast tomosynthesi s images (3-D mammography) of both breasts in the CC and MLO projections were obtained. Comparison studies are dated 02/10/2020, 01/20/2019 and 01/14/2018. The breast parenchyma is heterogeneously dense which could obscure a lesion on mammography (breast de nsity C). No spiculated mass is seen. No malignant appearing calcification or area of architectural d istortion is noted. Digital breast tomosynthesis images demonstrate no spiculated mass. No malignant appearing calcificat ion is seen. Impression: BI-RADS Category 1: Negative. There is no mammographic evidence of malignancy. Routine y early screening mammography is recommended for follow-up. This examination was reviewed with the aid of computer-aided detection. A mammogram does not have 100% sensitivity and therefore a negative imaging study should not delay fu rther work up of a suspicious abnormality. Patient information is entered into the reminder system with a target due date for the next screening mammogram of 04/11/2022. "Our facility is accredited by the [employer] Mammography Program." Electronically signed by: Piter Santos MD (04/11/2021 5:10 PM) [id number]
== END ==
LOC: MAMMO 09:05
PROVIDERS: ATTEND Specialist
DX: Z12.31 Encounter for screening mammogram for malignant neoplasm of breast (principal); R91.8 Other nonspecific abnormal finding of lung field; J43.9 Emphysema, unspecified; J84.10 Pulmonary fibrosis, unspecified; J98.4 Other disorders of lung; I25.10 Atherosclerotic heart disease of native coronary artery without angina pectoris; I05.8 Other rheumatic mitral valve diseases; K44.9 Diaphragmatic hernia without obstruction or gangrene; K86.89 Other specified diseases of pancreas
CPT/HCPCS: 71271; 77063; 77067